=== PATIENT | female | born 1995 | race Caucasian/White ===

== ENCOUNTER 2017-02-27 06:49 | Emergency (ER) | payer BC ==
[~2017-02-27] VITALS: Ht 152.4 cm; Wt 54.5 kg
[2017-02-27 06:52] VITALS: Ht 152.4 cm; Wt 54.5 kg
[2017-02-27] MEDS ORDERED: ACETAMINOPHEN 500 MG TAB PO STA (07:06)
[2017-02-27] MEDS ORDERED: SODIUM CHLORIDE 0.65% NA SOLN 45 ML (OCEAN) STA (07:06)
[2017-02-27] MEDS ORDERED: AMOXICILLIN/CLAVULANATE TAB 875 MG TAB PO STA (07:06)
[2017-02-27] MEDS ORDERED: BCPILLS PO (07:20)
[2017-02-27] MEDS ORDERED: LORA10TA57 PO (07:20)
--- NOTE | 2017-02-27 07:30 | EMERGENCY ROOM VISIT NOTE ---
History Report prepared by Kelin: Diane Vital Under the Supervision of: Dr. Shaq Hernandez M.D. First contact with patient: 06:55 Chief Complaint: FLU LIKE SX Stated Complaint: SWOLLEN TONSILS,COUGH,HEAD CONGESTION History of Present Illness The patient is a 22 year old female who presents to the Emergency Room with complaints of worsening flu-like symptoms for the past 2 days. She is experiencing a sore throat, cough, headache, sinus congestion, and swollen glands. She has been taking DayQuil and NyQuil for her symptoms. Last night she was unable to sleep because she was unable to swallow. She states that she can swallow, but it is just extremely painful. The patient rates her current pain as a 7/10 in severity. She also reports that about a week ago she thinks she swallowed a chicken bone that got stuck in her throat. Source of History: patient Onset: 2 days ago Position: other (global) Symptom Intensity: 7/10 Quality: other (flu-like) Timing: worsening Modifying Factors (Worsening): other (swallowing) Associated Symptoms: + headache, + sorethroat, + cough Review of Systems See HPI for pertinent positives & negatives. A total of 10 systems reviewed and were otherwise negative. Past Medical & Surgical Medical Problems: (1) Asthma Family History Diabetes mellitus Hypertension Social History Smoking Status: Never Smoker Smokeless Tobacco Use: No Alcohol Use: occasionally Housing Status: lives with friends Occupation Status: [employer] student Current/Historical Medications Scheduled Amoxicillin & Pot Clavulanate (Augmentin 875-125 mg), 1 TAB PO BID Control Pills ( Control Pills), 1 TAB PO DAILY Loratadine & Pseudoephedrine (Claritin-D 24 Hour), 1 TAB PO DAILY Allergies Coded Allergies: No Known Allergies (Unverified , 02/27/17) Physical Exam Vital Signs Date Time Temp Pulse Resp B/P (MAP) Pulse Ox O2 Delivery O2 Flow Rate FiO2 02/27/17 07:56 36.8 71 18 126/65 97 Room Air 02/27/17 06:52 37.2 100 16 136/92 97 Room Air Physical Exam GENERAL: Patient is a healthy-appearing well-nourished 22 year old female HEAD: Normocephalic atraumatic EYES: Ocular movements intact pupils equal and react to light OROPHARYNX mucous membranes are moist no exudates present no erythema or edema present. Tonsils slightly enlarged, no evidence of abscess, able to swallow her saliva NECK: Supple no nuchal rigidity, no evidence of meningitis or encephalitis CHEST: Good equal expansion LUNGS: Clear and equal to auscultation CARDIAC: Normal S1 and S2 ABDOMEN: Soft nontender no guarding BACK: No CVA tenderness EXTREMITIES: No pain upon palpation normal muscle strength in all groups no clubbing cyanosis or edema NEURO: Patient is following commands and answering questions appropriately. Alert and oriented x3 Cranial Nerves 2-12 grossly intact Medical Decision & Procedures ER Provider Diagnostic Interpretation: Radiology results as stated below per my review and radiologist interpretation: ] SOFT TISSUES NECK 2 VIEWS CLINICAL HISTORY: Foreign body sensation. FINDINGS: AP and lateral views of the soft tissues of the neck are obtained. No prior studies are available for comparison at the time of dictation. The pharyngeal soft tissues are normal as visualized. The airway is widely patent. The prevertebral/retropharyngeal soft tissues are normal. No radiodense foreign body seen. The imaged cervical spine appears intact. The partially visualized apical lung parenchyma appears clear. IMPRESSION: Unremarkable radiographic assessment of the soft tissues of the neck. Electronically signed by: Marek Skinner M.D. 02/27/2017 7:45 AM Dictated Date/Time: 02/27/2017 7:44 AM CHEST ONE VIEW PORTABLE CLINICAL HISTORY: Atypical chest pain COMPARISON STUDY: No previous studies for comparison. FINDINGS: The cardiac and mediastinal contours are normal. There is no evidence of focal pulmonary consolidation. There is no evidence of failure. No pleural effusions are visualized.[ IMPRESSION: No active disease in the chest. Electronically signed by: Kleber Powell M.D. 02/27/2017 7:44 AM Dictated Date/Time: 02/27/2017 7:44 AM Medications Administered Medications (Trade) Dose Ordered Sig/Jaime Route Start Time Stop Time Status Last Admin Dose Admin Amoxicillin/ Clavulanate Potassium (Augmentin Tab) 875 mg NOW STAT PO 02/27/17 07:06 02/27/17 07:09 DC 02/27/17 07:13 875 MG Sodium Chloride (Cadillac Nasal Rowe) 2 sprays NOW STAT NA 02/27/17 07:06 02/27/17 07:09 DC 02/27/17 07:13 2 SPRAYS Acetaminophen (Tylenol Tab) 1,000 mg NOW STAT PO 02/27/17 07:06 02/27/17 07:09 DC 02/27/17 07:13 1,000 MG ED Course 0655: Past medical records reviewed. The patient was evaluated in room B12B. A complete history and physical examination was performed. 0706: Tylenol 1000 mg PO, Cadillac Nasal spray 2 sprays NA, Augmentin 875 mg PO 0750: I reassessed the patient at this time. She is feeling better and resting comfortably. I discussed the results and treatment plan with the patient. I answered all pertaining questions that she had. Shed expressed understanding and verbalized agreement. The patient will be discharged home. Medical Decision Differential diagnosis: Etiologies such as viral syndrome, otitis, pharyngitis, pneumonia, influenza, meningitis, urinary tract infection, sepsis, bacteremia, as well as others were entertained. This is a 22-year-old female who presents emergency department complaining of swelling of the tonsils. She is negative strep here however she is well appearance and has no evidence of meningitis encephalitis on examination. I will treat the patient for sinusitis using Augmentin and recommended that the patient return to the emergency department if she develops severe headache. She was also given Tylenol in the emergency department and started on Cadillac Rowe. She has no wheezing on examination. I believe the patient as well as to be discharged home for follow-up with [facility]. Patient was in agreement with the treatment plan. Medication Reconcilliation Current Medication List: was personally reviewed by me Blood Pressure Screening Patient's blood pressure: Normal blood pressure Impression Primary Impression: Sinusitis Scribe Attestation The scribe's documentation has been prepared under my direction and personally reviewed by me in its entirety. I confirm that the note above accurately reflects all work, treatment, procedures, and medical decision making performed by me. Departure Information Dispostion Home / Self-Care Prescriptions Amoxicillin & Pot Clavulanate (Augmentin 875-125 mg) 1 Tab Tab 1 TAB PO BID for 10 Days, #20 TAB Prov: Shaq Hernandez MD 02/27/17 Referrals No Doctor, Assigned (PCP) Forms HOME CARE DOCUMENTATION FORM, IMPORTANT VISIT INFORMATION Patient Instructions ED Sinusitis Abx Tx, My [facility], Sinusitis Prevent, Sinusitis Self Care Additional Instructions Follow up with DR Gallagher's office for continued sinusitis issues Take 600 mg Ibuprofen every 6 hours Take 1000 mg Tylenol every 6 hours You have been examined and treated today on an emergency basis only. This is not a substitute for, or an effort to provide, complete comprehensive medical care. It is impossible to recognize and treat all injuries or illnesses in a single emergency department visit. It is therefore important that you follow up closely with [facility]. Call as soon as possible for an appointment. Thank you for your time and consideration. I look forward to speaking with you again soon. Please don't hesitate to call us if you have any questions. Problem Qualifiers Primary Impression: Sinusitis Sinusitis location: frontal Chronicity: unspecified Qualified Codes: J32.1 - Chronic frontal sinusitis
--- NOTE | 2017-02-27 07:45 | DIAGNOSTIC IMAGING REPORT ---
CHEST ONE VIEW PORTABLE CLINICAL HISTORY: Atypical chest pain COMPARISON STUDY: No previous studies for comparison. FINDINGS: The cardiac and mediastinal contours are normal. There is no evidence of focal pulmonary consolidation. There is no evidence of failure. No pleural effusions are visualized.[ IMPRESSION: No active disease in the chest. Electronically signed by: Kleber Powell M.D. 02/27/2017 7:44 AM Dictated Date/Time: 02/27/2017 7:44 AM
--- NOTE | 2017-02-27 07:47 | DIAGNOSTIC IMAGING REPORT ---
SOFT TISSUES NECK 2 VIEWS CLINICAL HISTORY: Foreign body sensation. FINDINGS: AP and lateral views of the soft tissues of the neck are obtained. No prior studies are available for comparison at the time of dictation. The pharyngeal soft tissues are normal as visualized. The airway is widely patent. The prevertebral/retropharyngeal soft tissues are normal. No radiodense foreign body seen. The imaged cervical spine appears intact. The partially visualized apical lung parenchyma appears clear. IMPRESSION: Unremarkable radiographic assessment of the soft tissues of the neck. Electronically signed by: Marek Skinner M.D. 02/27/2017 7:45 AM Dictated Date/Time: 02/27/2017 7:44 AM
[2017-02-27] MEDS ORDERED: AMOX875T PO (07:48)
[2017-02-27 07:56] VITALS: BP 126/65; PULSE 71; TEMP 36.8; O2SAT 97
== END 2017-02-27 07:57 | disposition home or self-care (01) ==
LOC: C.EDB 06:50
DX: J32.9 Chronic sinusitis, unspecified (principal); J45.909 Unspecified asthma, uncomplicated; Z83.3 Family history of diabetes mellitus; Z82.49 Family history of ischemic heart disease and other diseases of the circulatory system

== ENCOUNTER 2017-03-01 06:11 | Emergency (ER) | payer BC ==
[~2017-03-01] VITALS: Ht 152.4 cm; Wt 54.7 kg
[~2017-03-01 06:11] MED LIST: AMOX875T PO; BCPILLS PO; LORA10TA57 PO
[2017-03-01 06:15] VITALS: TEMP 36.8; Ht 152.4 cm; Wt 54.7 kg
[2017-03-01] MEDS ORDERED: FLUT0.15 NAE (07:05)
[2017-03-01] MEDS ORDERED: METH4PAK PO (07:05)
--- NOTE | 2017-03-01 07:09 | EMERGENCY ROOM VISIT NOTE ---
History First contact with patient: 06:37 Chief Complaint: SORETHROAT Stated Complaint: SORETHROAT, HEAD CONGESTION, COUGH History of Present Illness The patient is a 22 year old female who presents to the Emergency Room with complaints of sore throat. Symptoms started 2 days ago. She came to the ED at that time and a throat culture was sent. She was discharged with Augmentin. She notes that she has had nausea with Augmentin and is unable to keep it down. She comes back stating that her throat pain is worse today. She describes a burning pain and feeling like her tonsils are enlarged. She also states nasal congestion with post-nasal drip. She describes ear fullness, worse on the left side but no tinnitus or vertigo. She notes some wheezing and took 2 nebulizer treatments. She has felt feverish but has not measured a temperature. She denies nights sweats or chills. She denies chest pain, palpitations, orthopnea or lower leg swelling. Review of Systems A 10 point review of systems was negative unless stated above. Past Medical/Surgical History Medical Problems: (1) Asthma Family History Diabetes mellitus Hypertension Social History Smoking Status: Never Smoker Smokeless Tobacco Use: No Alcohol Use: occasionally Drug Use: none Housing Status: lives with friends Occupation Status: [employer] student Current/Historical Medications Scheduled Amoxicillin & Pot Clavulanate (Augmentin 875-125 mg), 1 TAB PO BID Control Pills ( Control Pills), 1 TAB PO DAILY Fluticasone Propionate (Nasal) (Flonase Allergy Relief), 1-2 SPRAYS DESHAWN BID Loratadine & Pseudoephedrine (Claritin-D 24 Hour), 1 TAB PO DAILY Methylprednisolone (Medrol Dosepak), 1 PKT PO UD Allergies NKA Physical Exam Vital Signs Date Time Temp Pulse Resp B/P (MAP) Pulse Ox O2 Delivery O2 Flow Rate FiO2 03/01/17 06:37 Room Air 03/01/17 06:15 36.8 84 20 139/91 97 Room Air Pain Rating (0-10): 7 Physical Exam Constitutional: Vital signs as above were reviewed. Eyes: Pupils equal, round, and reactive to light. Extraocular muscles are intact. No proptosis. No photophobia. ENT: Mucous membranes are moist. Oropharynx is erythematous with mild adenoid enlargement bilaterally, no purulence. No sinus tenderness. Mild dullness of left TM without effusion or purulence No trismus Cardiovascular: Heart with a regular rate and rhythm. No pedal edema appreciated. Respiratory: Lungs clear to auscultation bilaterally. No wheezes, rales, or rhonchi appreciated. No accessory muscle use. No retractions. No increased work of breathing. GI: Abdomen soft, nontender, nondistended. Normal active bowel sounds. No rebound. No guarding. : No CVA tenderness appreciated. Musculoskeletal: No midline cervical or vertebral tenderness. No gross deformities. No bony tenderness. No calf swelling or tenderness. Integumentary: Warm, dry, no rashes appreciated. Neurological: Patient awake, alert, and oriented x 3. Cranial nerves two through 12 grossly intact. Lymph: No cervical lymphadenopathy appreciated. Medical Decision & Procedures ER Provider Diagnostic Interpretation: RUN DATE: 02/28/17 [facility] LAB PAGE 1 RUN TIME: 1326 Specimen Inquiry PATIENT: SUSAN CRUZ LOC: [facility] U # : [id number] AGE/SX: 22/F ROOM: REG : 02/27/[address]: Shaq Hernandez MD : [id number] BED: DIS : STATUS: DEP ER TLOC: SPEC #: [id number] ROB: 02/27/17 STATUS: RES PATTI #: [id number] RECD: 02/27/[address]: David, Shaq Beltran MD SOURCE: THROAT ENTR: 02/27/[address]: Patience Felix, Assigned [facility]: ORDERED: GRP A STRP SCN COMMENTS: Specimen Comment rapid strep jarett borja rn Has Specimen Been Obtained/Collected? Y Procedure Result Verified Site RAPID GRP A BETA STREP SCREEN Final 02/27/17 SPECIMEN NEGATIVE FOR GROUP A BETA STREP. BY RAPID METHOD, CULTURE REPORT TO FOLLOW. GRP A STREP BACKUP CULTURE Preliminary 02/28/17 NO BETA STREP ISOLATED TO DATE. ED Course 06:40 - The patient was seen and evaluated by Dr. Marquez Thapa MD Family Medicine 07:00 - Discussed case with Dr. Polina Kaopor 07:10 - Discussed post-hospital care with patient. Patient agreeable to plan. Will follow-up with PCP with symptoms worsen Discharge paperwork completed Medical Decision A 22-year-old female who presents with sore throat.. The differential diagnosis includes pharyngitis (viral versus bacterial), tonsillitis, laryngitis, retropharyngeal abscess, peritonsillar abscess, GERD. The patient was here 2 days ago and throat cultures from then were reviewed and negative. As such with duration of 4 days of symptoms with negative throat culture, this is viral etiology and requires predominantly supportive care. The patient does have asthma so consideration was given to this causing a mild asthma exacerbation. She maintained oxygenation and her chest was clear in the ED though I felt it prudent to advise her to be more diligent with her inhaler and nebulizer at home. She did not have hoariness or stridor or trismus making abscess or laryngitis less likely. In the setting of persistent sore throat and mild asthma exacerbation due to viral illness, we felt it appropriate to provide a short course of steroids to cover for both of these and help with symptoms. In addition, Flonase was given for nasal congestion and to help with eustachian tube dysfunction. The patient was discharged in stable condition and will follow-up with PCP as needed if symptoms do not improve. Head Trauma GCS Score: 15 Blood Pressure Screening Patient's blood pressure: Normal blood pressure Impression Primary Impression: Viral upper respiratory illness Additional Impressions: Mild asthma Eustachian tube dysfunction Departure Information Dispostion Home / Self-Care Condition GOOD Prescriptions Methylprednisolone (MEDROL DOSEPAK) 4 Mg Desmond 1 PKT PO UD for 6 Days, #1 PKT Prov: Marquez Thapa MD 03/01/17 Fluticasone Propionate (Nasal) (Flonase Allergy Relief) 50 Mcg/Act Spr 1-2 SPRAYS DESHAWN BID for 7 Days, #1 BTL Prov: Marquez Thapa MD 03/01/17 Referrals [facility] (PCP) Patient Instructions My [facility] Additional Instructions You have a viral upper respiratory tract infection. Throat cultures from 2 days ago were negative. At this time, you do not need antibiotics. You may have a mild flare of your asthma but your oxygen levels are good in the ED. Please make sure you take your inhaler every 4 hours for the next couple of days, and used your nebulizer only as needed. We will give you a prescription for a steroid (Medrol Dosepak), which we hope will help with your throat pain and help your asthma symptoms improve. We will also give you a nasal steroid to help with nasal congestion. Please take Tylenol and/or Motrin as needed for fever or discomfort. You can also try warm saltwater gargles at nighttime for your sore throat. If your symptoms fail to improve, acutely worsen, please seek medical attention immediately by either calling your primary care provider or going to your nearest emergency department. Otherwise, please see your primary care provider within 1 week to ensure that your symptoms continue to improve. It was a pleasure to be involved in your care and we wish you all the best. Problem Qualifiers
[2017-03-01 07:17] VITALS: BP 128/89; PULSE 83; O2SAT 97
--- NOTE | 2017-03-01 14:48 | EMERGENCY ROOM VISIT NOTE ---
ED Visit Note First contact with patient: 06:37 Resident Physician Supervision Note: I interviewed and examined the patient. Discussed with Dr. Thapa and agree with findings and plan as documented in the note. Any exceptions or clarifications are listed here: none. Pt appeared to be well on exam. Mild erythema to posterior oropharynx. Patient has faint scattered wheezes. She'll be placed on a Medrol Dosepak with albuterol inhaler as needed. She will stop the Augmentin. Diagnosis: Viral URI, reactive airway disease, pharyngitis Documented By: Ginny Kapoor
== END 2017-03-01 07:22 | disposition home or self-care (01) ==
LOC: C.EDB 06:12
DX: J45.901 Unspecified asthma with (acute) exacerbation (principal); Z79.3 Long term (current) use of hormonal contraceptives; Z83.3 Family history of diabetes mellitus; Z82.49 Family history of ischemic heart disease and other diseases of the circulatory system